=== PATIENT | female | born 1995 | race Two or more races ===

== ENCOUNTER 2021-12-24 11:12 | Emergency (ER) | payer OTHER ==
[~2021-12-24] VITALS: Ht 170.2 cm; Wt 87.0 kg
[2021-12-24 11:33] VITALS: BP 156/93
[2021-12-24] MEDS ORDERED: KETOROLAC 60MG/2ML VIAL IM ONE (13:30)
[2021-12-24] MEDS ORDERED: IBUP-2028 MT (14:06)
== END 2021-12-24 14:20 | disposition home or self-care (01) ==
LOC: ER 11:12
DX: M25.512 Pain in left shoulder (principal); M54.2 Cervicalgia; W10.8XXA Fall (on) (from) other stairs and steps, initial encounter; Y93.89 Activity, other specified; Y92.9 Unspecified place or not applicable
CPT/HCPCS: 73030; 81025; 96372; 99283; J1885